=== PATIENT | male | born 1950 | race Caucasian/White ===

== ENCOUNTER → 2019-09-23 15:35 | Outpatient (CLI) | payer OTHER, SELFPAY ==
--- NOTE | 2019-09-23 | DI.US.S_ITS ---
PROCEDURE: US RENAL COMPLETE INDICATIONS: NEOPLASM OF RIGHT KIDNEY TECHNIQUE: Real-time scanning was performed of the kidneys and bladder, with image documentation. COMPARISON: [facility], CT, ABDOMEN/PELVIS WITH CONTRAST, 05/12/2008, 14:10. FINDINGS: Kidneys: Kidneys are normal in size. Right kidney measures 11.4 cm long; left kidney measures 12.8 cm long. Right renal cortical thickness is 1.6 cm; left renal cortical thickness is 1.8 cm. Renal cortical echotexture is normal. No hydronephrosis or nephrolithiasis. No suspicious solid mass lesions. Several cysts are seen, with a superior right renal cortical cyst measuring 3.8 x 3.1 x 3.9 cm. On the left there also are cysts, measuring up to 2.2 cm posteriorly at the lower pole and also 1.5 cm anteriorly at the lower pole. Bladder: Pre-void bladder volume is 71 mL. Post-void residual is 10 mL. Pre-void images demonstrate no intraluminal masses or stones. On pre-void images, bilateral ureteral jets are noted with color Doppler interrogation. (Of note, ureteral jets may not be detectable in up to 25% of cases due to insufficient differences in specific gravity between ureteral and bladder urine). Miscellaneous: No free pelvic fluid. IMPRESSION: The clinical history seems to suggest that a solid mass has been documented involving one of the kidneys, but no solid mass is found by this study. Rather, a single right and 2 left-sided renal cortical cysts appear present. If malignancy is clinically suspected followup by contrast enhanced renal protocol CT scanning would be recommended. Malignancy is not suspected by this ultrasound. Dictated by: Biju Strickland M.D. on 09/23/2019 at 17:04 Approved by: Biju Strickland M.D. on 09/23/2019 at 17:09
== END ==
PROVIDERS: Family Provider Specialist; PCP Specialist; Referring Provider Family Medicine; Visit Provider Family Medicine
DX: D49.511 Neoplasm of unspecified behavior of right kidney (principal); N28.1 Cyst of kidney, acquired
CPT/HCPCS: 76770

== ENCOUNTER → 2021-10-17 09:54 | Outpatient (CLI) | payer OTHER, SELFPAY ==
--- NOTE | 2021-10-17 10:00 | DI.CT.S_ITS ---
PROCEDURE: CT SINUS SCREEN WO CON INDICATIONS: Chronic sinusitis, unspecified TECHNIQUE: Noncontrast 3.0 mm axial images acquired from the frontal sinuses to the mid-sella, with coronal and sagittal reformats. For radiation dose reduction, the following was used: automated exposure control, adjustment of mA and/or kV according to patient size. COMPARISON: None. FINDINGS: Image quality: Excellent. Postsurgical changes compatible prior functional endoscopic sinus surgery noted. Paranasal sinuses are normally aerated. No mucosal thickening identified in the paranasal sinuses. No air-fluid levels identified in the paranasal sinuses. No osseous thickening, osseous remodeling or osseous erosive changes. IMPRESSION: Prior functional ischemic sinus surgery. No paranasal sinus mucosal thickening or air-fluid levels. Dictated by: Gemini Conley MD, PhD on 10/17/2021 at 11:55 Approved by: Gemini Conley MD, PhD on 10/17/2021 at 12:14
== END ==
PROVIDERS: Family Provider Specialist; PCP Family Medicine; Referring Provider Internal Medicine; Visit Provider Internal Medicine
DX: J01.90 Acute sinusitis, unspecified (principal)
CPT/HCPCS: 70486

== ENCOUNTER → 2022-02-12 10:38 | Outpatient (CLI) | payer OTHER, SELFPAY ==
--- NOTE | 2022-02-12 | DI.US.S_ITS ---
PROCEDURE: US ABDOMEN LIMITED INDICATIONS: Unilateral inguinal hernia, without obstruction TECHNIQUE: Real-time focused scanning was performed of the abdomen, with image documentation. Color Doppler was also utilized. COMPARISON: [facility], CT, ABDOMEN/PELVIS WITH CONTRAST, 05/12/2008, 14:10. FINDINGS: When standing, there is a probable right groin hernia seen that measures approximately 4.5 cm. On these images, it appears to contain fat. With Valsalva maneuver, no definite motion can be seen. IMPRESSION: Apparent fat containing hernia of the right groin, without significant motion with Valsalva maneuver. Please consider a follow-up CT for further evaluation. Dictated by: Wiliam Patel M.D. on 02/12/2022 at 10:29 Approved by: Wiliam Patel M.D. on 02/12/2022 at 10:30
== END ==
PROVIDERS: Family Provider Specialist; PCP Family Medicine; Referring Provider Internal Medicine; Visit Provider Internal Medicine
DX: K40.90 Unilateral inguinal hernia, without obstruction or gangrene, not specified as recurrent (principal)
CPT/HCPCS: 76705

== ENCOUNTER 2022-02-12 19:12 | Emergency (ER) | payer OTHER, SELFPAY ==
[2022-02-12 19:57] VITALS: BP 167/100; PULSE 84; RESP 18; TEMP 36.6; O2SAT 100
[2022-02-12 23:32] VITALS: BP 160/115; PULSE 80; RESP 16; O2SAT 99
--- NOTE | 2022-02-13 00:56 | ED.ABDPAIN ---
HPI - Abdominal Pain General Chief Complaint: Abdominal Pain Stated Complaint: PAINFUL RT HERNIA Time Seen by Provider: 02/12/22 23:49 Source: patient Mode of arrival: Ambulatory History of Present Illness HPI narrative: 71-year-old male nonsmoker without significant medical history presents with increasing pain in his right groin. He is known about a small right inguinal hernia for some time but states today he was twisting his torso and felt a pulling sensation in his right groin and is concerned that he may worsen things. He had imaging earlier in the day that demonstrates hernia but no bowel contained. He denies any significant swelling. He is had no fever chills, nausea or vomiting and denies change in bowel habits. Related Data Home Medications Medication Instructions Recorded Confirmed sulfamethoxazole 800 1 tab PO BID ##0 04/20/16 mg-trimethoprim 160 mg tablet Allergies Allergy/AdvReac Type Severity Reaction Status Date / Time ciprofloxacin Allergy Unknown Unverified 08/06/17 12:22 Review of Systems Review of Systems Narrative: GENERAL: Denies chills, fatigue, malaise, fever, sweats. HEENT: Denies sinus pain, ear pain, sore throat, difficulty swallowing, dizziness. RESPIRATORY: Denies dyspnea, cough, wheezing, hemoptysis, sputum. CARDIOVASCULAR: Denies chest pain, palpitations, orthopnea, edema, GASTROINTESTINAL: Denies nausea, vomiting, abdominal pain, diarrhea, constipation, melena. : See HPI MUSCULOSKELETAL: denies weakness, joint pain, or bony pain SKIN: Denies rash, skin lesions, or other NEUROLOGIC: Denies weakness, headache, numbness, change in speech, confusion, seizures, incoordination. PSYCHIATRIC: No concerning psychosocial issues. 12 point review of systems is negative except for those stated above Patient History Social History Smoking Status: Never smoker Smoking Status: Never smoker Substance Use Type: does not use Exam Narrative Exam Narrative: GENERAL: [71] year old patient appears stated age. Well-developed patient, in mild distress. HEAD: Atraumatic. Normocephalic. EYES: Pupils equal round and reactive. Extraocular motions intact. No scleral icterus. No injection or drainage. ENT: Nose without bleeding, purulent drainage. Throat without erythema, tonsillar hypertrophy or exudate. Airway patent. NECK: Trachea midline. Non tender CARDIOVASCULAR: Regular rate and rhythm without murmurs, gallops, or rubs. RESPIRATORY: Clear to auscultation. Breath sounds equal bilaterally. No wheezes, rales, or rhonchi. GASTROINTESTINAL: Abdomen soft, non-tender, nondistended. : Examined while patient standing, no palpable hernia noted, patient is tender in his right inguinal region raising the question of pain secondary to extending the rent versus other. No testicular swelling or pain EXTREMITIES: No edema or joint tenderness. BACK: Nontender without deformity or crepitance. No flank tenderness. NEURO: AOx3. SKIN: No rash or erythema of visible areas Initial Vital Signs Initial Vital Signs: Vital Signs Temperature 97.9 F 02/12/22 19:57 Pulse Rate 84 02/12/22 19:57 Respiratory Rate 18 02/12/22 19:57 Blood Pressure 167/100 H 02/12/22 19:57 Pulse Oximetry 100 02/12/22 19:57 Oxygen Delivery Method 02/12/22 19:57 Course Vital Signs Vital signs: Vital Signs - 8 hr 02/12/22 19:57 02/12/22 23:32 Temperature 97.9 F Pulse Rate 84 80 Respiratory Rate 18 16 Blood Pressure 167/100 H 160/115 H Pulse Oximetry 100 99 Oxygen Delivery Method Room Air Room Air MDM - Abdominal Pain Imaging Data US - abdomen: Radiologist's Impression: [address] [address] Ultrasound Report Signed Patient: Kyle Álvarez MR#: [id number] : 1950 Acct:[id number] Age/Sex: 71 / M Date of Service: 02/12/22 Loc: US Accession Number: [id number] ?? Procedure: US abdomen limited Ordering Provider: Jennifer Mohr MD PROCEDURE: US ABDOMEN LIMITED ? INDICATIONS:? Unilateral inguinal hernia, without obstruction ? TECHNIQUE:? Real-time focused scanning was performed of the abdomen, with image documentation.? Color Doppler was also utilized.? ? COMPARISON:? [facility], CT, ABDOMEN/PELVIS WITH CONTRAST, 05/12/2008, 14:10. ? FINDINGS:? When standing, there is a probable right groin hernia seen that measures approximately 4.5 cm.? On these images, it appears to contain fat.? With Valsalva maneuver, no definite motion can be seen.? IMPRESSION:? Apparent fat containing hernia of the right groin, without significant motion with Valsalva maneuver. ? Please consider a follow-up CT for further evaluation. ? ? Dictated by: Wiliam Patel M.D. on 02/12/2022 at 10:29 ? ? Approved by: Wiliam Patel M.D. on 02/12/2022 at 10:30 ? MDM Narrative Medical decision making narrative: Patient with increased right groin pain and known hernia without evidence of incarcerated or strangulated hernia. No testicular pain or swelling. No systemic complaints such as fever, chills nor nausea or vomiting. Likely hernia pain or increased rent injury. Return precautions discussed and questions answered to his apparent satisfaction Discharge Plan Departure Patient Disposition: Home Clinical Impression: Inguinal hernia Instructions: DI for Groin Hernia Activity Restrictions/Additional Instructions: *You have been diagnosed with [right inguinal hernia without evidence of obstruction or incarceration ] *What to do: *Please continue to take your regular medications as directed. *Please follow up with your Dr. Gallardo of [facility], call later this morning for an appointment. Let them know you were seen in the Emergency Department and that we ask that you be seen in follow up. *Return to Emergency Department if you should have any new, worsening or concerning symptoms, such as [fever greater than 101 F, shaking chills, worsening pain, persistent vomiting or other bothersome symptoms] Prescriptions: No Action sulfamethoxazole-trimethoprim 800 MG/160 MG tablet 1 tab PO BID Qty: 0 Referrals: Madeline Gallardo MD [Physician] - Ron Sherman MD [Primary Care Provider] - Visit Report Forms: Patient Portal/API
[2022-02-13 01:30] VITALS: BP 162/113; PULSE 85; RESP 18; TEMP 35.9; O2SAT 94
== END 2022-02-13 01:34 | disposition home or self-care (01) ==
PROVIDERS: Emergency Provider Emergency Medicine; Family Provider Specialist; PCP Family Medicine
DX: K40.90 Unilateral inguinal hernia, without obstruction or gangrene, not specified as recurrent (principal)
CPT/HCPCS: 76705; 99281

== ENCOUNTER → 2022-04-01 10:07 | Outpatient (CLI) | payer OTHER, SELFPAY ==
[2022-04-01 12:38] LABS: COVID19 -Nasal RAPID Negative (Negative)
== END ==
PROVIDERS: Family Provider Specialist; PCP Family Medicine; Visit Provider Surgery
DX: Z20.822 Contact with and (suspected) exposure to COVID-19 (principal); Z01.812 Encounter for preprocedural laboratory examination
CPT/HCPCS: 87635; C9803

== ENCOUNTER 2022-04-02 06:18 | Day surgery (SDC) | payer OTHER, SELFPAY ==
[2022-03-28 08:11] VITALS: BMI 27.8
[2022-04-02 07:22] VITALS: BP 158/93; PULSE 83; RESP 20; TEMP 35.9; O2SAT 99; BMI 27.3
[2022-04-02] MEDS: LACTATED RINGERS 1,000 ML 42 ML IV (07:31)
--- NOTE | 2022-04-02 07:49 | PM.HP.1 ---
History of Present Illness History of Present Illness Date Patient Seen: 04/02/22 Time Patient Seen: 07:49 Chief complaint: RIH REPAIR Narrative: Kyle is here for his right inguinal hernia repair today. His left lower abdominal soft tissue mass started to drain on its own and has now stopped. He recently started amoxicillin for a sinus infection. He has not taken his Eliquis since Friday. Patient History Medical History (Updated 02/28/22 @ 00:00 by ) Allergic rhinitis Atrial fibrillation Constipation Hypertension Hypoxia Lipomatosis Multiple renal cysts Sebaceous cyst Surgical History (Updated 03/28/22 @ 08:17 by Brenna Perez RN) Hx of abdominal surgery (1981) Hx of sinus surgery (1984) Family & Social History Social History: household members spouse Tobacco & Substance use: Smoking Status Never smoker alcohol intake never Substance Use Type does not use Meds Home Medications and Allergies Home Medications Medication Instructions Recorded Confirmed Type apixaban 5 mg tablet (Eliquis) 5 mg PO ONCE 02/20/22 04/02/22 History fluticasone propionate 50 1 spray intranasal DAILY 02/20/22 04/02/22 History mcg/actuation nasal spray,suspension (Flonase Allergy Relief) metoprolol succinate 50 mg 50 mg PO BID 02/20/22 04/02/22 History tablet,extended release 24 hr amoxicillin 500 mg-potassium 1 tab PO BID 04/02/22 04/02/22 History clavulanate 125 mg tablet Allergies Allergy/AdvReac Type Severity Reaction Status Date / Time ciprofloxacin Allergy Unknown Could not Verified 04/02/22 07:11 breathe very good! Exam Vital Signs (past 8 hours): - 04/02/22 07:22 Temperature 96.7 F L Pulse Rate 83 Respiratory Rate 20 Blood Pressure 158/93 H Pulse Oximetry 99 Oxygen Delivery Method Room Air Oxygen Flow Rate 0 Oxygen Delivery Method Room Air Oxygen Flow Rate 0 Narrative Exam Narrative: Right inguinal hernia Well-healed left lower abdominal epidermal scar with no active drainage or erythema Assessment & Plan Assessment and plan (1) Right inguinal hernia: Status: Acute Plan Plan for open right inguinal hernia repair with mesh. We will leave the left lower abdominal epidermal mass alone to reduce the risk of infection. If it flares up again in future we can deal with it at that time. Time Spent With Patient Critical Care time: I spent a total of [] minutes of critical care time on this patient's care today; this time is exclusive of procedural time.
[2022-04-02] MEDS: CEFAZOLIN 2 GM/100 ML PREMIX 100 ML IV (07:58)
--- NOTE | 2022-04-02 08:16 | SUR.OPER ---
Supine on padded OR bed, head on pillow, arms secured on padded arm boards at <90 degrees abduction, legs uncrossed, safety belt at thigh, tape over blanket over lower legs. Pillow under knees, gel pad under heels.
[2022-04-02] MEDS: LIDOCAINE 1% 20 ML INJ (08:27)
--- NOTE | 2022-04-02 09:05 | PM.OP.1 ---
Operative Date/Time/Diagnoses Date of procedure: 04/02/22 Time of procedure: 09:05 Pre-op diagnosis: Right inguinal hernia Post-op diagnosis: same Procedure & Clinicians Procedure: Open right inguinal hernia repair with mesh Same procedure as scheduled: Yes Surgeon: Raul Jones Anesthesia Type: General Operative Notes Procedure in detail: Preoperative antibiotic was administered. The patient was brought to the operating room and placed on the table in supine position general anesthesia was induced. The right groin was prepped and draped in the normal fashion and a time-out was performed. Roughly 10 mL of local anesthetic were injected into the skin and subcutaneous adipose tissue over the right groin. A 6 cm incision was made over the right inguinal canal. Dissection was carried down through the subcutaneous adipose tissue. We exposed the external oblique aponeurosis in the direction of the fibers. Additional local was injected deep to the aponeurosis. A 15 blade scalpel was used to amy the external oblique aponeurosis. Metzenbaum scissors were used to carefully open the aponeurosis in the direction of the fibers taking care not to injure the underlying ilioinguinal nerve which was well seen and protected. We completely exposed the inguinal canal. The cord was dissected free from the inguinal ligament and floor of the inguinal canal and the external oblique aponeurosis was dissected off of the internal oblique taking care not to injure the hypogastric nerve. We encircled the cord with a [place] drain for retraction. There was a fat containing direct defect. We then placed a polypropylene mesh against the floor of the inguinal canal. The mesh was secured with multiple interrupted 2-0 and 3-0 Prolene sutures to the pubic tubercle and shelving edge of the inguinal ligament as well as to the conjoint tendon medially. We overlapped the tails to recreate an internal ring and secured the medial tail to the inguinal ligament with additional sutures. We injected some more local into the fatty tissue in the inguinal canal and cord. Finally, we removed the [place] drain and closed the external oblique fascia with a running 3-0 Vicryl suture. Skin was closed with interrupted 3-0 Vicryl dermal sutures and a running 4 Monocryl subcuticular stitch. EBL 5 mL The patient was awakened and brought to recovery room. Post-operative Condition: stable Disposition: PACU
[2022-04-02 09:12] VITALS: BP 165/110; PULSE 110; RESP 16; TEMP 36.3; O2SAT 96
[2022-04-02 09:32] VITALS: BP 166/113; PULSE 94; RESP 16; TEMP 36.7; O2SAT 94
[2022-04-02] MEDS: OXYCODONE IR 5 MG TABLET PO (10:05)
== END 2022-04-02 10:13 | disposition home or self-care (01) ==
PROVIDERS: Family Provider Specialist; PCP Family Medicine; Referring Provider Surgery; Visit Provider Surgery
PROC: (CPT 49505; principal; 2022-04-02 07:45)
DX: K40.90 Unilateral inguinal hernia, without obstruction or gangrene, not specified as recurrent (principal)
CPT/HCPCS: 49505; J0690; J2405; J2704; J3010

== ENCOUNTER 2023-02-25 07:54 | Day surgery (SDC) | payer OTHER, SELFPAY ==
[2023-02-18 10:04] VITALS: BMI 28.0
[2023-02-25] VITALS (10 sets, daily range): BP systolic 101–134; BP diastolic 70–96; PULSE 68–149; RESP 12–22; TEMP 36.3–36.6; O2SAT 94–99; BMI 26.6
[2023-02-25] MEDS: LACTATED RINGERS 1,000 ML 42 ML IV ×2 (08:23→11:16)
--- NOTE | 2023-02-25 09:32 | PM.HP.1 ---
History of Present Illness History of Present Illness Date Patient Seen: 02/25/23 Time Patient Seen: 09:32 Chief complaint: Lap Recurrent RIH w/mesh Narrative: Kyle is here for his laparoscopic recurrent right inguinal hernia repair with mesh. He has also noted some left-sided discomfort recently and wonders if has a left-sided hernia. [facility] Medical History (Updated 02/25/23 @ 09:33 by Raul Jones MD) Allergic rhinitis Constipation Sebaceous cyst Lipomatosis Multiple renal cysts Atrial fibrillation Hypoxia Hypertension Surgical History (Updated 02/18/23 @ 10:07 by Brenna Perez RN) Hx of right inguinal hernia repair (04/02/22) Hx of abdominal surgery (1981) Hx of sinus surgery (1984) Social History household members: significant other Smoking Status: Never smoker alcohol intake: never Meds Home Medications and Allergies Home Medications Medication Instructions Recorded Confirmed Type apixaban 5 mg tablet (Eliquis) 5 mg PO ONCE 02/20/22 02/25/23 History fluticasone propionate 50 1 spray intranasal DAILY 02/20/22 02/25/23 History mcg/actuation nasal spray,suspension (Flonase Allergy Relief) metoprolol succinate 50 mg 50 mg PO BID 02/20/22 02/25/23 History tablet,extended release 24 hr rosuvastatin 10 mg tablet 10 mg PO DAILY 02/25/23 02/25/23 History Allergies Allergy/AdvReac Type Severity Reaction Status Date / Time ciprofloxacin Allergy Unknown Could not Verified 02/25/23 08:25 breathe very good! Exam Vital Signs (past 8 hours): - 02/25/23 08:30 Temperature 97.3 F L Pulse Rate 68 Respiratory Rate 16 Blood Pressure 134/93 H Pulse Oximetry 99 Oxygen Delivery Method Room Air Oxygen Delivery Method Room Air Narrative Exam Narrative: Right inguinal hernia Const General: healthy appearing Assessment & Plan Assessment and plan (1) Recurrent right inguinal hernia: Status: Acute Plan We reviewed the risks and benefits of laparoscopic recurrent right inguinal hernia repair with mesh. Since he has had some recent symptoms of the left side we will take a look at the left side and if a hernia is present we will repair the left side as well.
[2023-02-25] MEDS: CEFAZOLIN 2 GM/100 ML PREMIX 100 ML IV (10:00)
--- NOTE | 2023-02-25 10:22 | SUR.OPER ---
Supine on padded OR bed, head on pillow, arms padded and tucked at sides, legs uncrossed, safety belt at thigh, tape over blanket over lower legs .[place] Pad Positioner under torso.
[2023-02-25] MEDS: BUPIVACAINE 0.5% (PF) 30 ML VIAL INJ (10:31)
--- NOTE | 2023-02-25 12:07 | PM.OP.1 ---
Operative Date/Time/Diagnoses Date of procedure: 02/25/23 Time of procedure: 12:07 Pre-op diagnosis: Recurrent right inguinal hernia Post-op diagnosis: same Procedure & Clinicians Procedure: The patient was given preoperative antibiotics. The patient was brought to the operating room, placed on the table in the supine position with the arms tucked and general anesthesia was induced. The abdomen was prepped and draped in the usual fashion. A time-out was performed. A 1 cm transverse incision was created just above the umbilicus. Dissection was carried down to the anterior sheath. The fascia was scored transversely with cautery. A Peon clamp was used to grijalva the peritoneum. The Isra port was placed and the abdomen was insufflated to 15 mmHg. The camera was inserted, there was no evidence of any injury from the entry. There was a loop of small bowel adherent to the upper midline abdominal wall which was not in the way. 5 mm ports were placed under direct vision in the mid left and mid right abdomen. The patient was positioned in steep Trendelenburg. First, a large right Bard 3D max mesh was placed into the abdominal cavity and used to determine where to start flap. We then created right peritoneal flap. The peritoneum was dissected off the cord structures and a small direct defect was noted. The mesh was placed over the defect with the medial edge against Gerardo's ligament. We then closed the peritoneal flap with a running 3-0 barbed suture. There was no obvious left hernia defect. We took one last look around the abdomen and saw no other abnormalities. The suture was removed and accounted for. The 5 mm ports were removed under direct vision. The abdomen was desufflated. The Isra port was removed. Additional local was injected into the fascia and the infraumbilical fascial incision was closed with 3 interrupted 0 Vicryl sutures. The skin incisions were closed with 4 Monocryl, Steri-Strips and Band-Aids. EBL: 10 mL Same procedure as scheduled: Yes Surgeon: Raul Jones Anesthesia Type: General Post-operative Condition: stable Disposition: PACU
== END 2023-02-25 13:01 | disposition home or self-care (01) ==
PROVIDERS: Family Provider Specialist; PCP Family Medicine; Referring Provider Surgery; Visit Provider Surgery
PROC: 0YQ54ZZ Repair Right Inguinal Region, Percutaneous Endoscopic Approach (ICD-10-PCS; CPT 49651; principal; 2023-02-25 09:30)
DX: K40.91 Unilateral inguinal hernia, without obstruction or gangrene, recurrent (principal); I48.91 Unspecified atrial fibrillation; I10 Essential (primary) hypertension
CPT/HCPCS: 49651; 93005; J0330; J0690; J1100; J1885; J2405; J2704; J3010

== ENCOUNTER 2023-05-11 11:34 | Emergency (ER) | payer OTHER, SELFPAY ==
[2023-05-11 11:46] VITALS: BP 131/86; PULSE 72; RESP 16; TEMP 36.4; O2SAT 98; BMI 28.0
[2023-05-11 12:10] VITALS: BP 137/80; PULSE 88; RESP 14; O2SAT 97
--- NOTE | 2023-05-11 12:11 | ED_ITS ---
HPI - Skin/Abscess/Foreign Bdy General Chief complaint: Skin/Abscess/Foreign Body Stated complaint: cyst on groin that hurts Time Seen by Provider: 05/11/23 11:52 Source: patient Mode of arrival: Ambulatory Limitations: no limitations History of Present Illness HPI narrative: Patient is a 72-year-old male. Is currently on Bactrim being treated for prostatitis. He states yesterday he noticed a small swelling/wound in his right inguinal area near where he has had an inguinal hernia repair years ago. He states that today the swelling is somewhat worse in his more painful. He states that overall his urinary symptoms are improving. No fevers. No trauma to the area. Related Data Home Medications Medication Instructions Recorded Confirmed apixaban 5 mg tablet (Eliquis) 5 mg PO ONCE 02/20/22 04/16/23 fluticasone propionate 50 1 spray intranasal DAILY 02/20/22 04/16/23 mcg/actuation nasal spray,suspension (Flonase Allergy Relief) metoprolol succinate 50 mg 50 mg PO BID 02/20/22 04/16/23 tablet,extended release 24 hr rosuvastatin 10 mg tablet 10 mg PO DAILY 02/25/23 04/16/23 Allergies Allergy/AdvReac Type Severity Reaction Status Date / Time ciprofloxacin Allergy Unknown Could not Verified 04/16/23 13:59 breathe very good! Patient History Medical History Allergic rhinitis Constipation Sebaceous cyst Lipomatosis Multiple renal cysts Atrial fibrillation Hypoxia Hypertension Surgical History Hx of right inguinal hernia repair (04/02/22) Hx of abdominal surgery (1981) Hx of sinus surgery (1984) Social History household members: significant other Smoking Status: Never smoker alcohol intake: never Smoking Status: Never smoker Substance Use Type: does not use Exam Initial Vital Signs Initial Vital Signs: Vital Signs Temperature 97.5 F L 05/11/23 11:46 Pulse Rate 72 05/11/23 11:46 Respiratory Rate 16 05/11/23 11:46 Blood Pressure 131/86 05/11/23 11:46 Pulse Oximetry 98 05/11/23 11:46 Oxygen Delivery Method Room Air 05/11/23 11:46 Skin Other: Patient with a 0.5 x 0.5 cm area of abscess in the right inguinal region with approximately 1 cm total area of induration underneath this. Procedures Abscess I/D I&D #1: Site: other (Inguinal region) Side (if applicable): right Technique: incised with #11 blade Irrigation: No Packing used?: none Course Vital Signs Vital signs: Vital Signs - 8 hr 05/11/23 11:46 Temperature 97.5 F L Pulse Rate 72 Respiratory Rate 16 Blood Pressure 131/86 Pulse Oximetry 98 Oxygen Delivery Method Room Air MDM - Skin/Abscess/Foreign Bdy MDM Narrative Medical decision making narrative: Bedside ultrasound shows a less than 0.5 cm area of an abscess in the right inguinal area that was incised with a small amount of purulent material returning. There was no surrounding erythema. He was currently on Bactrim being treated for a prostatitis which would cover any potential cellulitis related to this. No cultures were obtained. Patient was given care instruction s and return precautions. He expressed understanding and agreement. Discharge Plan Departure Patient Disposition: Home Clinical Impression: Abscess Activity Restrictions/Additional Instructions: That would not be surprised if you get some drainage from the area over the next couple days. You can covered with a bandage or gauze. Continue with the antibiotics that you were currently taking is this most likely is going to be helpful as well. Return to the emergency department for new symptoms. Prescriptions: No Action Eliquis 5 mg tablet 5 mg PO ONCE metoprolol succinate 50 mg tablet extended release 24 hr 50 mg PO BID fluticasone propionate [Flonase Allergy Relief] 50 mcg/actuation spray,suspension 1 spray intranasal DAILY Rx Instructions: administer into each nostril rosuvastatin 10 mg tablet 10 mg PO DAILY Referrals: Ron Sherman MD [Primary Care Provider] - Stand Alone Forms: Patient Portal/API
== END 2023-05-11 12:23 | disposition home or self-care (01) ==
PROVIDERS: Emergency Provider Emergency Medicine; Family Provider Specialist; PCP Family Medicine
DX: L02.214 Cutaneous abscess of groin (principal)
CPT/HCPCS: 99281

== ENCOUNTER 2023-07-06 10:08 | Emergency (ER) | payer OTHER, SELFPAY ==
[2023-07-06] VITALS (13 sets, daily range): BP systolic 131–182; BP diastolic 86–113; PULSE 58–97; RESP 9–22; TEMP 36.8; O2SAT 96–99; BMI 26.5
--- NOTE | 2023-07-06 10:13 | DI.RAD.S_ITS ---
PROCEDURE: XR CHEST 1V INDICATIONS: chest pain TECHNIQUE: One view of the chest was acquired. COMPARISON: [facility], , CHEST 2 VIEW, 03/25/2007, 12:32. FINDINGS: Surgical changes and devices: None. Lungs and pleura: An incomplete inspiratory result is noted, causing a crowded appearance to the lung markings. No focal infiltrates are seen. No pneumothorax or significant pleural effusions are seen. Mediastinum: Mediastinal contours appear normal. Heart size is normal. Atherosclerotic calcification of the aortic arch is noted. Bones and chest wall: No suspicious bony lesions. Age-appropriate bony degenerative changes are seen. Overlying soft tissues appear unremarkable. IMPRESSION: Low lung volumes, without an acute abnormality seen by plain film. Dictated by: Wiliam Patel M.D. on 07/06/2023 at 9:44 Approved by: Wiliam Patel M.D. on 07/06/2023 at 9:45
--- NOTE | 2023-07-06 10:30 | ED.CHESTPAIN ---
HPI - Chest Pain General Chief Complaint: Chest Pain Stated Complaint: chest pains and tightness extrme head ache t-1 Time Seen by Provider: 07/06/23 10:12 Source: patient Mode of arrival: Ambulatory Limitations: no limitations History of Present Illness HPI narrative: Patient is a 72-year-old male. History of what sounds like chronic atrial fibrillation. Is on apixaban and metoprolol. States last evening he was having a headache. Described it on the top of his head in the right side of his head. He does have headaches frequently because of sinus issues but this feels somewhat different than that. This morning he woke up and felt like he was having chest pressure. No pain. He also had pain about both of his ankles. His ankle pain is now resolved. His headache is improved this morning compared to last evening. No fevers. No neck pain. No coughing. No sore throat. He states that just generally he does not feel very well and wanted to get checked. Related Data Home Medications Medication Instructions Recorded Confirmed apixaban 5 mg tablet (Eliquis) 5 mg PO ONCE 02/20/22 04/16/23 fluticasone propionate 50 1 spray intranasal DAILY 02/20/22 04/16/23 mcg/actuation nasal spray,suspension (Flonase Allergy Relief) metoprolol succinate 50 mg 50 mg PO BID 02/20/22 04/16/23 tablet,extended release 24 hr rosuvastatin 10 mg tablet 10 mg PO DAILY 02/25/23 04/16/23 Allergies Allergy/AdvReac Type Severity Reaction Status Date / Time ciprofloxacin Allergy Unknown Could not Verified 04/16/23 13:59 breathe very good! Review of Systems Review of Systems ROS Unobtainable: All systems reviewed & are unremarkable except as noted in HPI and below Patient History Medical History Allergic rhinitis Constipation Sebaceous cyst Lipomatosis Multiple renal cysts Atrial fibrillation Hypoxia Hypertension Surgical History Hx of right inguinal hernia repair (04/02/22) Hx of abdominal surgery (1981) Hx of sinus surgery (1984) Social History household members: significant other Smoking Status: Never smoker alcohol intake: never Smoking Status: Never smoker Substance Use Type: does not use Exam Initial Vital Signs Initial Vital Signs: Vital Signs Pulse Rate 91 H 07/06/23 10:21 Pulse Oximetry 96 07/06/23 10:21 Const General: cooperative, comfortable and No ill appearing HENMT Head: normal to inspection and normocephalic Resp Effort & Inspection: normal respiratory effort Auscultation: clear to auscultation bilaterally Cardio Rate: regular rate Rhythm: abnormal rhythm GI Inspection: normal to inspection and non-distended Skin General: no rashes or lesions noted Neuro General: patient alert, patient awake, patient oriented x3 and moves all extremities Extrem General: normal to inspection, capillary refill normal and No edema Course Orders Ordered: ED Orders 07/06/23 10:13 XR chest 1V Stat EKG-12 Lead Stat 07/06/23 10:25 Complete Blood Count AUTO DIFF Stat Comprehensive Metabolic Panel Stat Lipase Stat Magnesium Stat PTT Partial Thromboplastin [place] Stat Prothrombin Time INR Stat Troponin & CK Cardiac Panel Stat 07/06/23 10:59 Covid-19 + FLU A/B + RSV - PCR Stat 07/06/23 12:42 Troponin & CK Cardiac Panel Stat Vital Signs Vital signs: Vital Signs - 8 hr 07/06/23 10:21 07/06/23 10:22 07/06/23 10:22 Temperature Pulse Rate 91 H 90 Respiratory Rate 22 Blood Pressure 182/113 H Pulse Oximetry 96 98 Oxygen Delivery Method 07/06/23 10:30 07/06/23 10:30 07/06/23 10:31 Temperature 98.3 F Pulse Rate 97 H 63 Respiratory Rate 19 Blood Pressure 165/86 H 182/113 H Pulse Oximetry 99 98 Oxygen Delivery Method Room Air Room Air 07/06/23 10:44 07/06/23 10:44 07/06/23 11:00 Temperature Pulse Rate 81 70 Respiratory Rate 20 12 Blood Pressure 171/97 H Pulse Oximetry 98 98 Oxygen Delivery Method Room Air 07/06/23 11:00 07/06/23 11:30 07/06/23 11:30 Temperature Pulse Rate 64 Respiratory Rate 14 Blood Pressure 146/94 H 131/86 Pulse Oximetry 97 Oxygen Delivery Method Room Air 07/06/23 12:00 07/06/23 12:00 07/06/23 12:30 Temperature Pulse Rate 58 L Respiratory Rate 13 Blood Pressure 143/90 H 145/95 H Pulse Oximetry 97 Oxygen Delivery Method 07/06/23 12:30 07/06/23 12:52 07/06/23 12:52 Temperature Pulse Rate 66 75 Respiratory Rate 16 16 Blood Pressure 176/91 H Pulse Oximetry 97 98 Oxygen Delivery Method Room Air 07/06/23 13:00 07/06/23 13:00 Temperature Pulse Rate 67 Respiratory Rate 9 L Blood Pressure 154/91 H Pulse Oximetry 98 Oxygen Delivery Method MDM - Chest Pain Lab Data Attestation: I reviewed the patient's lab results. 07/06/23 10:25 07/06/23 10:25 Labs: Lab Results 07/06/23 07/06/23 07/06/23 Range/Units 10:25 10:59 12:42 WBC 5.8 (4.5-11.0) X10^3/uL RBC 4.97 (4.5-5.9) X10^6/uL Hgb 15.5 (13.5-17.5) g/dL Hct 45.9 (41-53) % MCV 92.3 (80-100) fL MCH 31.1 (26-34) PG MCHC 33.7 (30-36) % RDW 14.6 (11.6-14.8) % Plt Count 220 (150-400) X10^3/uL Neut % (Auto) 53.0 (50-75) % Lymph % (Auto) 35.1 (25-40) % [place] % (Auto) 10.3 (3-14) % Eos % (Auto) 1.3 L (2-4) % Baso % (Auto) 0.3 (0-2) % Neut # (Auto) 3100 (1840-0997) /uL Lymph # (Auto) 2000 (1573-3838) /uL [place] # (Auto) 600 (0-900) /uL Eos # (Auto) 100 (0-450) /uL Baso # (Auto) 0 (0-100) /uL PT 12.8 H (9.4-12.5) SECONDS INR 1.1 (0.9-1.3) APTT 33 (25.1-36.5) SECONDS Sodium 142 (137-145) mmol/L Potassium 4.0 (3.4-5.1) mmol/L Chloride 108 H (98-107) mmol/L Carbon Dioxide 31 (22-32) mmol/L BUN 14 (9-20) mg/dL Creatinine 0.63 L (0.66-1.25) mg/dL Estimated GFR > 60 (>60) mL/min BUN/Creatinine Ratio 22.2 H (6-22) Glucose 101 (80-110) mg/dL Calcium 9.0 (8.4-10.2) mg/dL Magnesium 2.1 (1.6-2.3) mg/dL Total Bilirubin 0.9 (0.2-1.3) mg/dL AST 25 (17-59) IU/L ALT 22 (<50) IU/L Alkaline Phosphatase 43 (38-126) U/L Total Creatine Kinase 40 L 39 L (55-170) U/L Troponin I < 0.012 < 0.012 (0.01-0.034) ng/mL Total Protein 7.7 (6.3-8.2) g/dL Albumin 4.3 (3.5-5.0) g/dL Globulin 3.4 (1.7-4.1) g/dL Albumin/Globulin Ratio 1.3 (1.0-2.8) Lipase 43 (23-300) U/L SARS-CoV-2 (PCR) Negative (Negative) Influenza A (RT-PCR) Flu a negative (NEGATIVE) Influenza B (RT-PCR) Flu b negative (NEGATIVE) RSV (PCR) Negative (Negative) Imaging Data Chest x-ray: Radiologist's Impression: PROCEDURE: XR CHEST 1V INDICATIONS: chest pain TECHNIQUE: One view of the chest was acquired. COMPARISON: Located within [facility], CHEST 2 VIEW, 03/25/2007, 12:32. FINDINGS: Surgical changes and devices: None. Lungs and pleura: An incomplete inspiratory result is noted, causing a crowded appearance to the lung markings. No focal infiltrates are seen. No pneumothorax or significant pleural effusions are seen. Mediastinum: Mediastinal contours appear normal. Heart size is normal. Atherosclerotic calcification of the aortic arch is noted. Bones and chest wall: No suspicious bony lesions. Age-appropriate bony degenerative changes are seen. Overlying soft tissues appear unremarkable. IMPRESSION: Low lung volumes, without an acute abnormality seen by plain film. ECG Data Attestation: I personally reviewed and interpreted this ECG as follows: Interpretation: Atrial fibrillation Ventricular rate of 85 Normal axis Normal QRS Normal QTC No ST T wave changes MDM Narrative Medical decision making narrative: 2- troponins. Nonischemic EKG, other labs unremarkable. Chest x-ray is unremarkable. Low suspicion for CVA, TIA, ACS. He does have a history of AFib and is rate controlled and is on apixaban. Had a discussion with the patient regarding his symptoms. Patient is safe for discharge home with follow-up with his primary provider. He was given return precautions. He expressed understanding and agreement. Discharge Plan Departure Patient Disposition: Home Clinical Impression: Atypical chest pain, Headache Instructions: DI for Atypical Chest Pain Activity Restrictions/Additional Instructions: Recommend that you continue to take all of your medications as directed and contact your primary care doctor for a follow-up. Return to the emergency department for new or worsening symptoms. Prescriptions: No Action Eliquis 5 mg tablet 5 mg PO ONCE metoprolol succinate 50 mg tablet extended release 24 hr 50 mg PO BID fluticasone propionate [Flonase Allergy Relief] 50 mcg/actuation spray,suspension 1 spray intranasal DAILY Rx Instructions: administer into each nostril rosuvastatin 10 mg tablet 10 mg PO DAILY Referrals: Ron Sherman MD [Primary Care Provider] - Stand Alone Forms: Patient Portal/API
[2023-07-06 10:33] LABS: Add Manual Diff / Slide Review NO; Basophils Absolute Auto 0 /uL (0-100); Basophils Percent Auto 0.3 % (0-2); Eosinophils Absolute Auto 100 /uL (0-450); Eosinophils Percent Auto 1.3 % (2-4); Hematocrit 45.9 % (41-53); Hemoglobin 15.5 g/dL (13.5-17.5); Lymphocytes Absolute Auto 2000 /uL (1100-4500); Lymphocytes Percent Auto 35.1 % (25-40); Mean Corpuscular HGB Conc 33.7 % (30-36); Mean Corpuscular Hemoglobin 31.1 PG (26-34); Mean Corpuscular Volume 92.3 fL (80-100); Monocytes Absolute Auto 600 /uL (0-900); Monocytes Percent Auto 10.3 % (3-14); Neutrophils Absolute Auto 3100 /uL (1500-7000); Platelet Count 220 X10^3/uL (150-400); Red Blood Cell Count 4.97 X10^6/uL (4.5-5.9); Red Cell Distribution Width 14.6 % (11.6-14.8); White Blood Cell Count 5.8 X10^3/uL (4.5-11.0)
[2023-07-06 10:44] LABS: INR 1.1 (0.9-1.3); Prothrombin Time 12.8 SECONDS (9.4-12.5)
[2023-07-06 10:47] LABS: Alanine Aminotransferase 22 IU/L (<50); Albumin 4.3 g/dL (3.5-5.0); Albumin Globulin Ratio 1.3 (1.0-2.8); Alkaline Phosphatase 43 U/L (38-126); Aspartate Aminotransferase 25 IU/L (17-59); BUN Creatinine Ratio 22.2 (6-22); Bilirubin Total 0.9 mg/dL (0.2-1.3); Blood Urea Nitrogen 14 mg/dL (9-20); Carbon Dioxide 31 mmol/L (22-32); Chloride 108 mmol/L (98-107); Creatine Kinase 40 U/L (55-170); Estimated Glomerular Filt Rate > 60 mL/min (>60); Globulin 3.4 g/dL (1.7-4.1); Glucose 101 mg/dL (80-110); HEMOLYSIS < 15 (0-50); Lipase 43 U/L (23-300); Magnesium 2.1 mg/dL (1.6-2.3); PTT Partial Thromboplastin Tim 33 SECONDS (25.1-36.5); Sodium 142 mmol/L (137-145); Total Protein 7.7 g/dL (6.3-8.2)
[2023-07-06 10:59] LABS: Troponin I < 0.012 ng/mL (0.01-0.034)
[2023-07-06 11:44] LABS: Influenza A - CEPHEID Flu A NEGATIVE (NEGATIVE); Influenza B - CEPHEID Flu B NEGATIVE (NEGATIVE); Respiratory Syncytial Virus Negative (Negative)
[2023-07-06 12:17] LABS: COVID-19 CEPHEID 4-PLEX PCR Negative (Negative)
[2023-07-06 13:09] LABS: Creatine Kinase 39 U/L (55-170)
[2023-07-06 13:21] LABS: Troponin I < 0.012 ng/mL (0.01-0.034)
== END 2023-07-06 14:08 | disposition home or self-care (01) ==
PROVIDERS: Emergency Provider Emergency Medicine; Family Provider Specialist; PCP Family Medicine
DX: R07.89 Other chest pain (principal); R51.9 Headache, unspecified; Z79.01 Long term (current) use of anticoagulants; Z20.822 Contact with and (suspected) exposure to COVID-19
CPT/HCPCS: 0241U; 36415; 71045; 80053; 82550; 83690; 83735; 84484; 85025; 85610; 85730; 93005; 93010; 99284

== ENCOUNTER → 2023-10-09 16:46 | Outpatient (CLI) | payer OTHER, SELFPAY ==
--- NOTE | 2023-10-09 16:49 | DI.RAD.S_ITS ---
PROCEDURE: XR CHEST 2V INDICATIONS: CHEST PAIN TECHNIQUE: 2 views of the chest were acquired. COMPARISON: [facility], CR, XR CHEST 1V, 07/06/2023, 10:17. FINDINGS: Surgical changes and devices: Cholecystectomy clips. Lungs and pleura: Lungs are clear. No pleural effusions or pneumothorax. Mediastinum: Mediastinal contours are normal. Heart size is normal. Bones and chest wall: No suspicious bony abnormalities. Soft tissues appear unremarkable. IMPRESSION: No acute cardiopulmonary abnormality is seen. Dictated by: William Hutton M.D. on 10/10/2023 at 13:57 Approved by: William Hutton M.D. on 10/10/2023 at 14:07
== END ==
LOC: RAD 16:47
PROVIDERS: Family Provider Specialist; PCP Family Medicine; Referring Provider Family Medicine; Visit Provider Family Medicine
DX: J20.9 Acute bronchitis, unspecified (principal)
CPT/HCPCS: 71046

== ENCOUNTER 2023-12-11 10:44 | Emergency (ER) | payer OTHER, SELFPAY ==
[2023-12-11] VITALS (7 sets, daily range): BP systolic 141–168; BP diastolic 92–109; PULSE 96–112; RESP 21–23; TEMP 36.6; O2SAT 97–99; BMI 29.2
--- NOTE | 2023-12-11 10:58 | EKG_ITS ---
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
--- NOTE | 2023-12-11 11:03 | ED.GENADULT ---
HPI - General Adult General Chief complaint: Abdominal Pain Stated complaint: severe abd L side pain Time Seen by Provider: 12/11/23 10:53 Source: patient Mode of arrival: Ambulatory History of Present Illness HPI narrative: 73-year-old male who has a distant history of diverticulitis who is here for evaluation of approximately 3 days of left-sided abdominal pain. He states he had a bowel movement last night in the middle of the night that was somewhat dark in color and afterwards his abdominal pain did improve slightly but then has come back again. No change in any urinary issues. Some nausea but no vomiting. No fevers. No history of kidney stones. He does not remember whether or not this feels anything like his prior history of diverticulitis. Related Data Home Medications Medication Instructions Recorded Confirmed apixaban 5 mg tablet (Eliquis) 5 mg PO ONCE 02/20/22 04/16/23 fluticasone propionate 50 1 spray intranasal DAILY 02/20/22 04/16/23 mcg/actuation nasal spray,suspension (Flonase Allergy Relief) metoprolol succinate 50 mg 50 mg PO BID 02/20/22 04/16/23 tablet,extended release 24 hr rosuvastatin 10 mg tablet 10 mg PO DAILY 02/25/23 04/16/23 Allergies Allergy/AdvReac Type Severity Reaction Status Date / Time ciprofloxacin Allergy Unknown Could not Verified 12/11/23 10:52 breathe very good! Review of Systems Review of Systems ROS Unobtainable: All systems reviewed & are unremarkable except as noted in HPI and below Patient History Medical History Allergic rhinitis Constipation Sebaceous cyst Lipomatosis Multiple renal cysts Atrial fibrillation Hypoxia Hypertension Surgical History Hx of right inguinal hernia repair (04/02/22) Hx of abdominal surgery (1981) Hx of sinus surgery (1984) Social History household members: significant other Smoking Status: Never smoker alcohol intake: never Smoking Status: Never smoker alcohol intake frequency: holidays/special occasions only Substance Use Type: does not use Exam Initial Vital Signs Initial Vital Signs: Vital Signs Temperature 97.8 F 12/11/23 10:45 Pulse Rate 97 H 12/11/23 10:45 Respiratory Rate 21 12/11/23 10:45 Blood Pressure 168/105 H 12/11/23 10:45 Pulse Oximetry 98 12/11/23 10:45 Oxygen Delivery Method Room Air 12/11/23 10:45 Const General: cooperative, comfortable and No ill appearing [facility] Head: normal to inspection Resp Effort & Inspection: normal respiratory effort Cardio Rate: regular rate GI Inspection: normal to inspection and non-distended Palpation: soft, No firm, No guarding and tender (Left-sided abdomen) Skin General: no rashes or lesions noted Neuro General: patient alert and patient awake Course Orders Ordered: ED Orders 12/11/23 10:52 EKG-12 Lead Stat 12/11/23 10:56 Complete Blood Count AUTO DIFF Stat Comprehensive Metabolic Panel Stat Lipase Stat 12/11/23 11:04 CT abdomen pelvis w con Stat EKG-12 Lead Stat Ondansetron HCl (Ondansetron 4 Mg/2 Ml Inj) 4 mg IV NOW PRN PRN Reason: Nausea And Vomiting Ondansetron HCl (Ondansetron 4 Mg Odt) 4 mg PO NOW PRN PRN Reason: Nausea And Vomiting Vital Signs Vital signs: Vital Signs - 8 hr 12/11/23 10:45 12/11/23 10:49 12/11/23 10:49 Temperature 97.8 F Pulse Rate 97 H 101 H Respiratory Rate 21 Blood Pressure 168/105 H 168/105 H Pulse Oximetry 98 98 Oxygen Delivery Method Room Air 12/11/23 11:00 12/11/23 11:00 12/11/23 11:35 Temperature Pulse Rate 110 H 112 H Respiratory Rate 23 Blood Pressure 144/98 H Pulse Oximetry 97 99 Oxygen Delivery Method Room Air 12/11/23 12:00 12/11/23 12:00 Temperature Pulse Rate 99 H Respiratory Rate 21 Blood Pressure 141/92 H Pulse Oximetry 99 Oxygen Delivery Method Room Air Medical Decision Making Medical Records Medical records reviewed: Yes I reviewed the patient's medical records. Lab Data Lab results reviewed: Yes I reviewed the patient's lab results. 12/11/23 10:56 12/11/23 10:56 Labs: Lab Results 12/11/23 Range/Units 10:56 WBC 7.3 (4.5-11.0) X10^3/uL RBC 5.14 (4.5-5.9) X10^6/uL Hgb 16.0 (13.5-17.5) g/dL Hct 46.9 (41-53) % MCV 91.3 (80-100) fL MCH 31.2 (26-34) PG MCHC 34.2 (30-36) % RDW 14.7 (11.6-14.8) % Plt Count 247 (150-400) X10^3/uL Neut % (Auto) 70.4 (50-75) % Lymph % (Auto) 20.6 L (25-40) % [place] % (Auto) 7.8 (3-14) % Eos % (Auto) 0.8 L (2-4) % Baso % (Auto) 0.4 (0-2) % Neut # (Auto) 5100 (8816-7861) /uL Lymph # (Auto) 1500 (6181-7817) /uL [place] # (Auto) 600 (0-900) /uL Eos # (Auto) 100 (0-450) /uL Baso # (Auto) 0 (0-100) /uL Sodium 139 (137-145) mmol/L Potassium 4.6 (3.4-5.1) mmol/L Chloride 106 (98-107) mmol/L Carbon Dioxide 26 (22-32) mmol/L BUN 12 (9-20) mg/dL Creatinine 0.70 (0.66-1.25) mg/dL Estimated GFR > 60 (>60) mL/min BUN/Creatinine Ratio 17.1 (6-22) Glucose 111 H (80-110) mg/dL Calcium 9.2 (8.4-10.2) mg/dL Total Bilirubin 1.1 (0.2-1.3) mg/dL AST 32 (17-59) IU/L ALT 18 (<50) IU/L Alkaline Phosphatase 47 (38-126) U/L Total Protein 7.8 (6.3-8.2) g/dL Albumin 4.6 (3.5-5.0) g/dL Globulin 3.2 (1.7-4.1) g/dL Albumin/Globulin Ratio 1.4 (1.0-2.8) Lipase 47 (23-300) U/L Urine Dip Bedside Urine Glucose Negative Bedside Urine Bilirubin - Negative Bedside Urine Ketone - Negative Urine Specific [place] 1.020 Bedside Urine Occult Blood - Negative Bedside Urine pH 6.0 Bedside Urine Protein - Negative Bedside Urine Urobilinogen - Negative Bedside Urine Nitrite - Negative Bedside Urine Leukocytes - Negative Esterase Point of care testing: Urine Dip Bedside Urine Glucose Negative Bedside Urine Bilirubin - Negative Bedside Urine Ketone - Negative Urine Specific [place] 1.020 Bedside Urine Occult Blood - Negative Bedside Urine pH 6.0 Bedside Urine Protein - Negative Bedside Urine Urobilinogen - Negative Bedside Urine Nitrite - Negative Bedside Urine Leukocytes - Negative Esterase Imaging Data CT scan - abdomen/pelvis: Radiologist's Impression: PROCEDURE: CT ABDOMEN PELVIS W CON INDICATIONS: L sided abd pain TECHNIQUE: After the administration of intravenous contrast, axial sections acquired from the lung bases to the pubic symphysis. Coronal and sagittal reformats were performed. For radiation dose reduction, the following was used: automated exposure control, adjustment of mA and/or kV according to patient size. COMPARISON: [facility], , US ABDOMEN LIMITED, 02/12/2022, 10:52. FINDINGS: Image quality: Diagnostic. Lower Chest: No significant findings. ABDOMEN: Liver: No solid mass. Diffuse fatty liver infiltration is noted. Gallbladder: Cholecystectomy. Biliary ducts: No biliary dilation. Pancreas: No ductal dilation. Spleen: Size is within normal limits. Adrenal Glands: No adrenal nodules. Kidneys and Ureters: No hydronephrosis. No solid mass. A low-density lesion seen that measures 29 Hounsfield units. Simple left renal cysts can be seen. Stomach and Bowel: Mild sigmoid diverticulosis is seen, without findings of active diverticulitis. No significant colonic abnormality is seen. The distal colon is collapsed. Normal colonic caliber, without significant wall thickening. No dilated loops of small bowel are seen. A normal appendix is noted. Peritoneum: No abnormal intraperitoneal fluid. No free air. Ventral Wall: No significant ventral hernia. Abdominal Nodes: No retroperitoneal or mesenteric adenopathy by size criteria. Vessels: Aorta and inferior vena cava are normal in size. PELVIS: Pelvic Organs: Unremarkable. Bladder: No bladder wall thickening, accounting for underdistention. Pelvic Nodes: No enlarged lymph nodes. Miscellaneous: There is a mild fat containing left inguinal hernia. Bones: No aggressive osseous abnormality. Bilateral L5 pars defects are seen. Minimal L5-S1 anterolisthesis is seen. Age-appropriate bony degenerative changes are seen. IMPRESSION: Mild sigmoid diverticulosis is seen, without findings of active diverticulitis. There is an exophytic lesion along the lateral aspect of the right kidney that cannot be defined as a simple cyst. This most likely represents a complex cyst. Further workup is recommended, beginning with a dedicated renal ultrasound. Additional findings: Fatty liver infiltration Cholecystectomy Simple left renal cysts Bilateral L5 pars defects, with minimal grade 1 L5-S1 anterolisthesis Mild fat containing left inguinal hernia ECG Data Attestation: I personally reviewed and interpreted this ECG as follows: Interpretation: Atrial fibrillation Ventricular rate 85 Normal axis Normal QRS Normal QTC No ST T wave changes MDM Narrative Medical decision making narrative: Patient does have a benign exam. We did discuss the findings of the renal cyst noted on the CT scan today that I do not think is causing his abdominal pain today. He was diverticulosis without signs of acute diverticulitis. No signs of bowel obstruction. No indication for surgical consultation or admission to the hospital. Discussed this with the patient. We discussed return precautions and follow-up instructions. He expressed understanding and agreement. Discharge Plan Departure Patient Disposition: Home Clinical Impression: Abdominal pain, Renal cyst Instructions: DI for Abdominal Pain-Adult Activity Restrictions/Additional Instructions: Your workup here in the emergency department is very reassuring. We did have the incidental finding of the renal cyst noted on the CT scan today that I recommend that you talk with your primary care doctor about further evaluation. Continue to take all of your medications as directed. Return to the emergency department for new or worsening symptoms. Prescriptions: No Action Eliquis 5 mg tablet 5 mg PO ONCE metoprolol succinate 50 mg tablet extended release 24 hr 50 mg PO BID fluticasone propionate [Flonase Allergy Relief] 50 mcg/actuation spray,suspension 1 spray intranasal DAILY Rx Instructions: administer into each nostril rosuvastatin 10 mg tablet 10 mg PO DAILY Referrals: Ron Sherman MD [Primary Care Provider] - Stand Alone Forms: Patient Portal/API
[2023-12-11 11:04] LABS: Add Manual Diff / Slide Review NO; Basophils Absolute Auto 0 /uL (0-100); Basophils Percent Auto 0.4 % (0-2); Eosinophils Absolute Auto 100 /uL (0-450); Eosinophils Percent Auto 0.8 % (2-4); Hematocrit 46.9 % (41-53); Lymphocytes Absolute Auto 1500 /uL (1100-4500); Lymphocytes Percent Auto 20.6 % (25-40); Mean Corpuscular HGB Conc 34.2 % (30-36); Mean Corpuscular Hemoglobin 31.2 PG (26-34); Mean Corpuscular Volume 91.3 fL (80-100); Monocytes Absolute Auto 600 /uL (0-900); Monocytes Percent Auto 7.8 % (3-14); Neutrophils Absolute Auto 5100 /uL (1500-7000); Neutrophils Percent Auto 70.4 % (50-75); Platelet Count 247 X10^3/uL (150-400); Red Blood Cell Count 5.14 X10^6/uL (4.5-5.9); Red Cell Distribution Width 14.7 % (11.6-14.8); White Blood Cell Count 7.3 X10^3/uL (4.5-11.0)
[2023-12-11 11:17] LABS: Alanine Aminotransferase 18 IU/L (<50); Albumin 4.6 g/dL (3.5-5.0); Albumin Globulin Ratio 1.4 (1.0-2.8); Alkaline Phosphatase 47 U/L (38-126); Aspartate Aminotransferase 32 IU/L (17-59); BUN Creatinine Ratio 17.1 (6-22); Bilirubin Total 1.1 mg/dL (0.2-1.3); Blood Urea Nitrogen 12 mg/dL (9-20); Calcium 9.2 mg/dL (8.4-10.2); Carbon Dioxide 26 mmol/L (22-32); Chloride 106 mmol/L (98-107); Estimated Glomerular Filt Rate > 60 mL/min (>60); Globulin 3.2 g/dL (1.7-4.1); Glucose 111 mg/dL (80-110); Lipase 47 U/L (23-300); Potassium 4.6 mmol/L (3.4-5.1); Sodium 139 mmol/L (137-145); Total Protein 7.8 g/dL (6.3-8.2)
[2023-12-11 11:19] LABS: HEMOLYSIS 54 (0-50)
== END 2023-12-11 13:20 | disposition home or self-care (01) ==
PROVIDERS: Emergency Provider Emergency Medicine; Family Provider Specialist; PCP Family Medicine
DX: R10.9 Unspecified abdominal pain (principal); N28.1 Cyst of kidney, acquired; I48.91 Unspecified atrial fibrillation; Z79.01 Long term (current) use of anticoagulants
CPT/HCPCS: 36415; 74177; 80053; 81003; 83690; 85025; 93005; 93010; 99284; Q9967

== ENCOUNTER 2023-12-26 10:54 | Emergency (ER) | payer OTHER, SELFPAY ==
[2023-12-26 11:04] VITALS: BP 155/93; PULSE 66; RESP 14; TEMP 36.1; O2SAT 98; BMI 28.8
--- NOTE | 2023-12-26 11:19 | ED.BACK ---
HPI - Back Pain/Injury General Chief Complaint: Abdominal Pain Stated Complaint: lower back pain, l side pain Time Seen by Provider: 12/26/23 11:09 Source: patient History of Present Illness HPI Narrative: 73-year-old male presents for evaluation of bilateral back/flank pain for the last 2 weeks. In triage note states also abdominal pain, however patient repeatedly points to his back and states back pain, denying abdominal pain currently. Worse with bending and twisting. He was seen 2 weeks prior for same complaint, he underwent CT imaging that showed a lesion on his right kidney. He has followed up with both his primary care doctor and General surgery, who have ordered additional imaging, but these have not been completed yet. PCP also ordered methocarbamol. Pain improved with Tylenol at home. Patient states that his primary concern is checking to see if this is an issue with his kidneys or perhaps his muscles. Related Data Home Medications Medication Instructions Recorded Confirmed apixaban 5 mg tablet (Eliquis) 5 mg PO ONCE 02/20/22 12/24/23 fluticasone propionate 50 1 spray intranasal DAILY 02/20/22 12/24/23 mcg/actuation nasal spray,suspension (Flonase Allergy Relief) metoprolol succinate 50 mg 50 mg PO BID 02/20/22 12/24/23 tablet,extended release 24 hr rosuvastatin 10 mg tablet 10 mg PO DAILY 02/25/23 12/24/23 Allergies Allergy/AdvReac Type Severity Reaction Status Date / Time ciprofloxacin Allergy Unknown Could not Verified 12/26/23 11:04 breathe very good! Patient History Medical History Allergic rhinitis Constipation Sebaceous cyst Lipomatosis Multiple renal cysts Atrial fibrillation Hypoxia Hypertension Surgical History Hx of right inguinal hernia repair (04/02/22) Hx of abdominal surgery (1981) Hx of sinus surgery (1984) Social History marital status: unmarried,living together household members: significant other lives independently: Yes occupational status: previously employed Smoking Status: Never smoker alcohol intake: never substance use type: does not use Smoking Status: Never smoker alcohol intake frequency: holidays/special occasions only Substance Use Type: does not use Exam Initial Vital Signs Initial Vital Signs: Vital Signs Temperature 96.9 F L 12/26/23 11:04 Pulse Rate 66 12/26/23 11:04 Respiratory Rate 14 12/26/23 11:04 Blood Pressure 155/93 H 12/26/23 11:04 Pulse Oximetry 98 12/26/23 11:04 Oxygen Delivery Method Room Air 12/26/23 11:04 Const: Awake, alert, no acute distress, nontoxic appearing Cardiac: regular rate, regular rhythm RESP: unlabored, clear bilaterally, no wheezing GI: Soft, nontender, nondistended, no rebound, no guarding MSK back: Atraumatic, full range of motion, pulses equal, generalized paraspinal lumbar tenderness to deep palpation Skin: Warm, Dry, intact, no rashes Neuro: AO x3, CN II-XII grossly intact, moves all extremities Course Orders Ordered: ED Orders 12/26/23 11:18 US renal complete Stat XR lumbar spine 2-3V Stat Vital Signs Vital signs: Vital Signs - 8 hr 12/26/23 11:04 Temperature 96.9 F L Pulse Rate 66 Respiratory Rate 14 Blood Pressure 155/93 H Pulse Oximetry 98 Oxygen Delivery Method Room Air MDM - Back Pain/Injury Lab Data Labs: Urine Dip Bedside Urine Glucose Negative Bedside Urine Bilirubin - Negative Bedside Urine Ketone - Negative Urine Specific Palmer 1.015 Bedside Urine Occult Blood - Negative Bedside Urine pH 7.0 Bedside Urine Protein - Negative Bedside Urine Urobilinogen - Negative Bedside Urine Nitrite - Negative Bedside Urine Leukocytes - Negative Esterase Imaging Data Extremity x-ray #1: Radiologist's Impression: PROCEDURE: XR LUMBAR SPINE 2-3V INDICATIONS: lbp x 3 wks TECHNIQUE: 3 views of the lumbar spine were acquired. COMPARISON: None. FINDINGS: Bones: 5 [id number] vertebrae are present. There is normal bony alignment. Degenerative endplate changes, loss of disc height and bilateral facet arthrosis throughout lumbar spine is seen most notably involving L4-5 and L5-S1 levels. Grade 1 retrolisthesis of L4 on L5 is seen and measures 4 mm in distance. No vertebral body compression fractures. No suspicious bony lesions. Soft tissues: Overlying bowel gas pattern is normal. No suspicious soft tissue calcifications. IMPRESSION: Degenerative disc disease throughout lumbar spine. No acute compression fracture. Grade 1 retrolisthesis of L4 on L5. Dictated by: Ruben Thakur M.D. on 12/26/2023 at 12:13 Approved by: Ruben Thakur M.D. on 12/26/2023 at 12:16 US - abdomen: Radiologist's Impression: PROCEDURE: US RENAL COMPLETE INDICATIONS: back pain, cyst on kidney TECHNIQUE: Real-time scanning was performed of the kidneys and bladder, with image documentation. COMPARISON: [facility], CT, CT ABDOMEN PELVIS W CON, 12/11/2023, 11:28. [facility], US, US RENAL COMPLETE, 09/23/2019, 16:06. FINDINGS: Kidneys: Kidneys are normal in size. Right kidney measures 10.3 cm long; left kidney measures 12.8 cm long. Right renal cortical thickness is 1.8 cm; left renal cortical thickness is 2.4 cm. Renal cortical echotexture is normal. No hydronephrosis or nephrolithiasis. Multiple simple appearing bilateral renal cysts are seen measures up to 4.2 x 3.9 x 2.9 cm in size in midpole of right kidney and 2.4 x 1.6 x 2.6 cm in size in lower pole left kidney. No suspicious solid mass lesions. Bladder: Urinary bladder is decompressed. No gross bladder wall abnormality is seen. Miscellaneous: No free pelvic fluid. IMPRESSION: 1. Simple appearing bilateral renal cysts as above. No solid appearing renal lesion. No hydronephrosis or nephrolithiasis. 2. Urinary bladder is decompressed. No gross abnormality is seen. Dictated by: Ruben Thakur M.D. on 12/26/2023 at 12:16 Approved by: Ruben Thakur M.D. on 12/26/2023 at 12:27 [facility] Narrative Medical decision making narrative: Well-appearing patient with 2 weeks of symptoms. Has been seen in the emergency department, by general surgery, in by PCP for this complaint. Has pending renal ultrasound and x-ray imaging that has not been performed yet. Physical exam is fairly unremarkable, no midline tenderness, abdomen soft, no reproducible tenderness to light or deep palpation. Renal ultrasound performed, the previously seen lesion is unremarkable, and in fact has been present since 2019 - seen on previous renal ultrasound and reportedly benign. X ray imaging of the spine shows degenerative disc disease without acute fracture. Patient relieved to know imaging findings, he states that he will continue to follow up with his primary care doctor if he keeps having pain. Patient advised to take Tylenol as needed for comfort. Discharge Plan Departure Patient Disposition: Home Clinical Impression: Lumbar back pain Instructions: DI for Low Back Pain Activity Restrictions/Additional Instructions: Your back x-ray showed degenerative changes, which are expected with age. The ultrasound of your kidneys showed that you have simple renal cysts, which are benign and are very commonly found in many people. Continue to take Tylenol in the methocarbamol prescribed for pain. Follow up with your primary care doctor. Prescriptions: No Action Eliquis 5 mg tablet 5 mg PO ONCE metoprolol succinate 50 mg tablet extended release 24 hr 50 mg PO BID fluticasone propionate [Flonase Allergy Relief] 50 mcg/actuation spray,suspension 1 spray intranasal DAILY Rx Instructions: administer into each nostril rosuvastatin 10 mg tablet 10 mg PO DAILY Referrals: Ron Sherman MD [Primary Care Provider] - Stand Alone Forms: Patient Portal/API
[2023-12-26 12:57] VITALS: BP 150/90; PULSE 70; RESP 16; O2SAT 98
== END 2023-12-26 12:57 | disposition home or self-care (01) ==
PROVIDERS: Emergency Provider Emergency Medicine; Family Provider Specialist; PCP Family Medicine
DX: M54.50 Low back pain, unspecified (principal); N28.1 Cyst of kidney, acquired; Z79.01 Long term (current) use of anticoagulants
CPT/HCPCS: 72100; 76770; 81003; 99283; 99284

== ENCOUNTER → 2024-03-10 08:28 | Outpatient (CLI) | payer OTHER, SELFPAY ==
--- NOTE | 2024-03-10 08:31 | DI.MRI.S_ITS ---
PROCEDURE: MR LUMBAR SPINE WO/W CON INDICATIONS: low back pain TECHNIQUE: Noncontrast sagittal T1 spin echo and T2 fast echo, sagittal STIR, and T2 fast spin echo through the lumbar spine. In cases with scoliosis, additional coronal T2 fast spin echo may be performed. COMPARISON: None. FINDINGS: Image quality: Excellent. Alignment and Curvature: There is normal bony alignment. Bone Marrow: Marrow is of normal overall signal. No acute vertebral body compression fractures. Spinal Cord: Conus medullaris terminates at the L1 level. Visualized cord demonstrates normal signal and size. Paraspinous Soft Tissues: No paravertebral masses. T12-L1: Normal appearance. L1-L2: Normal appearance. L2-L3: Normal appearance. L3-L4: Moderate arthropathy. No central or foraminal stenosis. L4-L5: Mild arthropathy. No central or foraminal stenosis. L5-S1: Normal appearance. IMPRESSION: Mild lower lumbar spine and arthropathy. No central or foraminal stenosis. Approved by: Miah Saavedra M.D. on 03/10/2024 at 17:50
--- NOTE | 2024-03-10 08:31 | DI.CT.S_ITS ---
PROCEDURE: CT ABDOMEN PELVIS W CON INDICATIONS: Bilateral inguinal pain TECHNIQUE: After the administration of intravenous contrast, axial sections acquired from the lung bases to the pubic symphysis. Coronal and sagittal reformats were performed. For radiation dose reduction, the following was used: automated exposure control, adjustment of mA and/or kV according to patient size. COMPARISON: [facility], CT, CT ABDOMEN PELVIS W CON, 12/11/2023, 11:28. FINDINGS: Image quality: Diagnostic. Lower Chest: Mild cardiomegaly with small pericardial effusion, chronic. ABDOMEN: Liver: Mild hepatic steatosis. No solid mass. Gallbladder: Surgically absent. Biliary ducts: Appropriate biliary tree caliber post cholecystectomy. Pancreas: Normal size and morphology without visible ductal dilatation or inflammation. Spleen: Size is within normal limits. Adrenal Glands: No adrenal nodules. Kidneys and Ureters: Symmetric enhancement. No nephrolithiasis or hydronephrosis. No hydroureter. Bilateral renal cysts. Stomach and Bowel: Stomach and small bowel loops are normal caliber. Normal appendix. Occasional colonic diverticulosis. Peritoneum: No abnormal intraperitoneal fluid. No free air. Ventral Wall: No significant ventral hernia. Abdominal Nodes: No retroperitoneal or mesenteric adenopathy by size criteria. Vessels: The abdominal aorta, IVC, and portal vein are of normal caliber. Mild abdominal aortic atherosclerotic calcification. PELVIS: Pelvic Organs: Normal size prostate with coarse calcifications. Bladder: Decompressed. Pelvic Nodes: No enlarged lymph nodes. Miscellaneous: Probable mesh hernia repair in the right inguinal region. No evidence of recurrent inguinal hernia. No evidence of a left inguinal or femoral hernia. Bones: No aggressive osseous abnormality. Mild degenerative changes in both femoroacetabular joints. IMPRESSION: No evidence of recurrent inguinal hernia. Mild degenerative hip joint change. Dictated by: Lydia Moralez M.D. on 03/10/2024 at 21:09 Approved by: Lydia Moralez M.D. on 03/10/2024 at 21:15
[2024-03-10 09:11] LABS: Estimated Glomerular Filt Rate > 60 mL/min (>60)
[2024-03-10 09:58] LABS: Prostate Specific Antigen 0.337 ng/mL (0.10-4.00)
== END ==
LOC: MRI 08:30
PROVIDERS: Family Medicine; Radiology Diagnostic Radiology; Family Provider Specialist; PCP Family Medicine; Referring Provider Surgery; Visit Provider Surgery
DX: I31.39 Other pericardial effusion (noninflammatory); M47.816 Spondylosis without myelopathy or radiculopathy, lumbar region; N28.1 Cyst of kidney, acquired; K76.0 Fatty (change of) liver, not elsewhere classified; I48.91 Unspecified atrial fibrillation; I51.7 Cardiomegaly; M54.9 Dorsalgia, unspecified; R10.31 Right lower quadrant pain; R10.32 Left lower quadrant pain; Z12.5 Encounter for screening for malignant neoplasm of prostate; Z90.49 Acquired absence of other specified parts of digestive tract
CPT/HCPCS: 36415; 72158; 74177; 82565; 84153; A9579; Q9967

== ENCOUNTER 2024-05-13 07:06 | Day surgery (SDC) | payer OTHER, SELFPAY ==
--- NOTE | 2024-05-13 | PATH_ITS ---
[facility] Accession Number: [id number] No. of containers..04 Tissue . 01 Material submitted: . PART A: duodenum - DUODENAL PART B: gastrointestinal site - ANTRUM PART C: colon - ASCENDING POLYPS PART D: colon - DESCENDING POLYPS . 01 Diagnosis: A. DUODENUM, BIOPSY: Duodenal mucosa with no diagnostic abnormality. Negative for active inflammation, features of sprue, dysplasia, or malignancy. . B. GASTRIC ANTRUM, BIOPSY: Gastric antral mucosa with mild chronic inflammation. Negative for Helicobacter organisms by immunohistochemistry. Negative for intestinal metaplasia. Negative for dysplasia and malignancy. . C. ASCENDING COLON POLYPS: Tubular adenomas. . D. DESCENDING COLON POLYPS: Tubular adenomas. MCKENZIE 05/18/2024 1042 Local . 01 Electronically signed: . Júnior Oconnor MD, PhD, Pathologist NPI- [id number] . 01 Gross description: . A. Received in formalin with two patient identifiers and 1. Duodenal biopsy, are two lamar soft tissue fragments, 0.3-0.4 cm in greatest dimension, submitted in A1. B. Received in formalin with two patient identifiers and 2. Antrum biopsy, are two lamar soft tissue fragments, 0.2-0.4 cm in greatest dimension, submitted in B1. C. Received in formalin with two patient identifiers and 3. Ascending colon polyps, are two lamar soft tissue fragments, 0.5-0.6 cm in greatest dimension, submitted in C1. D. Received in formalin with two patient identifiers and 4. Descending colon polyps, are multiple lamar soft tissue fragments mixed with other biological material aggregating to 1.1 x 0.6 x 0.2 cm. Filtered and submitted in D1. ([id number]) /MRV 05/14/2024 1534 Local . 01 Microscopic: . B. An immunohistochemical stain was performed to evaluate for Helicobacter organisms and is negative. The control stain showed appropriate reactivity. . . * This test was developed and the performance characteristics were validated by [employer]. It has not been cleared or approved by the U.S. Food and Drug Administration. . 01 Pathologist provided ICD-10: K29.70, D12.2, D12.4 . 01 CPT . 359188, 606306, 633983, 456843, K11070 Specimen Comment: A courtesy copy of this report has been sent to [phone] Performed at: [address] [address], [place], [place] [id number] MD Noman Carpenter MD Phone: [phone]
[2024-05-13 07:29] VITALS: BP 152/105; PULSE 107; RESP 16; TEMP 35.9; O2SAT 98
[2024-05-13] MEDS: SODIUM CHLORIDE 0.9% 1,000 ML 84 ML IV (07:34)
--- NOTE | 2024-05-13 08:07 | P.HP_ITS ---
History of Present Illness History of Present Illness Date Patient Seen: 05/13/24 Time Patient Seen: 08:08 Chief complaint: EGD & Colonoscopy Narrative: Kyle is a 73-year-old man here for EGD and colonoscopy. See prior office notes for details. His last colonoscopy was 5 years ago and he was recommended to have a 5 year follow up. He did have multiple polyps removed 6 years ago during a colonoscopy. He also is scheduled for an EGD due to abdominal pain. [facility] Medical History Colon polyps (~2017) Soft tissue mass Viral infection Allergic rhinitis Constipation Sebaceous cyst Lipomatosis Multiple renal cysts Atrial fibrillation (~2019) Hypoxia Hypertension (~2022) Surgical History Anesthesia Hx of right inguinal hernia repair (04/02/22) Hx of abdominal surgery (1981) Hx of sinus surgery (1984) Family History Father Dementia Mother History of kidney cancer Family/Other Cancer Social History marital status: unmarried,living together household members: significant other lives independently: Yes occupational status: previously employed Smoking Status: Never smoker alcohol intake: never substance use type: does not use Meds Home Medications and Allergies Home Medications Medication Instructions Recorded Confirmed Type apixaban 5 mg tablet (Eliquis) 5 mg PO ONCE 02/20/22 05/13/24 History fluticasone propionate 50 1 spray intranasal DAILY 02/20/22 03/17/24 History mcg/actuation nasal spray,suspension (Flonase Allergy Relief) metoprolol succinate 50 mg 50 mg PO BID 02/20/22 05/13/24 History tablet,extended release 24 hr rosuvastatin 10 mg tablet 10 mg PO DAILY 02/25/23 05/13/24 History peg 3350-electrolytes 236 240 ml PO Q10M #4,000 mL 01/09/24 03/17/24 Rx gram-22.74 gram-6.74 gram-5.86 gram solution (Golytely) Allergies Allergy/AdvReac Type Severity Reaction Status Date / Time ciprofloxacin Allergy Unknown Could not Verified 05/13/24 07:19 breathe very good! Exam Vital Signs (past 8 hours): - 05/13/24 07:29 Temperature 96.6 F L Pulse Rate 107 H Respiratory Rate 16 Blood Pressure 152/105 H Pulse Oximetry 98 Oxygen Delivery Method Room Air Oxygen Delivery Method Room Air Const General: healthy appearing Resp Effort & Inspection: normal respiratory effort Assessment & Plan Assessment and plan (1) Abdominal pain: Qualifiers: Abdominal location: generalized Qualified Code(s): R10.84 - Generalized abdominal pain Status: Inactive (2) History of colon polyps: Status: Acute Plan We will proceed with an EGD and colonoscopy today. Time-Based Coding :: [TOTAL MINUTES] spent with patient and on the chart (including review of chart, obtaining history, exam, reviewing outside data, placing orders, documenting exam and treatment plan, and counseling patient) on [DATE].
[2024-05-13 08:53] VITALS: BP 109/59; PULSE 96; RESP 21; TEMP 37.2; O2SAT 96
--- NOTE | 2024-05-13 08:56 | PM.OP.EC ---
Operative Date/Time/Diagnoses Pre-op diagnosis: Abdominal pain and history of polyps Post-op diagnosis: same Procedure & Clinicians Study performed: EGD and colonoscopy Same procedure as scheduled: Yes Surgeon: Raul Jones Procedure Notes Procedure in detail: Surgeon: Raul Jones MD Anesthesia: Chaya Paige CRNA Procedure in detail: A timeout was performed. A bite blocked was placed and monitors were attached to the patient. The patient was positioned in the left lateral decubitus position. Sedation was administered. Once the patient was sedated the endoscope was inserted through the bite block and passed through the esophagus and stomach and into the duodenum. We did perform random biopsies of the duodenal mucosa with cold forceps. We performed random biopsies of the antral mucosa with cold forceps. We then withdrew the scope into the stomach. No gross abnormalities were found. The endoscope was retroflexed and no clinically significant hiatal hernia was noted. The endoscope was straightned and withdrawn into the esophagus. No abnormalities were seen in the esophagus. EGD findings: Grossly normal esophagus Next we repositioned the patient for a colonoscopy. A digital rectal exam was performed and was normal. The colonoscope was inserted and advanced to the cecum. The appendiceal orifice was identified and photographed. The scope was slowly withdrawn over greater than 6 minutes. We found 2 small polyps in the ascending colon each about 3 mm and all were removed with cold snare and sent together. We then found 3 small polyps, each about 3-4 mm in the descending colon removed with a cold snare and sent together. The scope was retroflexed in the rectum and no other abnormalities were found. Colonoscopy findings: 2 small polyps in the ascending colon and 3 small polyps in the descending colon all less than 5 mm Total procedural EBL: 5 mL Scope withdrawal time: 11 minutes Sedation minutes: 25 minutes Post-procedure Disposition: PACU
[2024-05-13 08:57] VITALS: BP 97/69; PULSE 92; RESP 24; O2SAT 98
[2024-05-13 09:03] VITALS: BP 119/85; PULSE 87; RESP 18; TEMP 36.8; O2SAT 99
[2024-05-13 09:05] VITALS: BP 119/83; PULSE 83; RESP 18; O2SAT 97
== END 2024-05-13 09:22 | disposition home or self-care (01) ==
PROVIDERS: Family Provider Specialist; PCP Family Medicine; Referring Provider Surgery; Visit Provider Surgery
PROC: 0DJ08ZZ Inspection of Upper Intestinal Tract, Via Natural or Artificial Opening Endoscopic (ICD-10-PCS; CPT 45385; principal; 2024-05-13 08:15)
PROC: 0DJD8ZZ Inspection of Lower Intestinal Tract, Via Natural or Artificial Opening Endoscopic (ICD-10-PCS; CPT 45378; 2024-05-13 08:15)
DX: Z12.11 Encounter for screening for malignant neoplasm of colon (principal); Z86.0100 Personal history of colon polyps, unspecified; D12.2 Benign neoplasm of ascending colon; D12.4 Benign neoplasm of descending colon; K29.50 Unspecified chronic gastritis without bleeding; R10.84 Generalized abdominal pain; I10 Essential (primary) hypertension; I48.91 Unspecified atrial fibrillation; Z79.01 Long term (current) use of anticoagulants
CPT/HCPCS: 45385; 43239; J2704

== ENCOUNTER → 2025-02-03 12:25 | Outpatient (CLI) | payer OTHER, SELFPAY ==
--- NOTE | 2025-02-03 12:27 | DI.RAD.S_ITS ---
PROCEDURE: XR CHEST 2V INDICATIONS: COUGH TECHNIQUE: 2 views of the chest were acquired. COMPARISON: [facility], CR, XR CHEST 1V, 12/25/2024, 11:48. [facility], CR, XR CHEST 2V, 10/09/2023, 16:55. FINDINGS: Surgical changes and devices: None. Lungs and pleura: Lungs are clear. No pleural effusions or pneumothorax. Mediastinum: Mediastinal contours are normal. Heart size is normal. Bones and chest wall: No suspicious bony abnormalities. Soft tissues appear unremarkable. IMPRESSION: No acute cardiopulmonary abnormality is seen. Dictated by: Jacobo Max M.D. on 02/04/2025 at 15:09 Approved by: Jacobo Max M.D. on 02/04/2025 at 15:10
== END ==
PROVIDERS: Family Provider Specialist; PCP Family Medicine; Referring Provider Family Medicine; Visit Provider Family Medicine
DX: J20.9 Acute bronchitis, unspecified (principal)
CPT/HCPCS: 71046